=== PATIENT | male | born 1995 | race Caucasian/White ===

== ENCOUNTER 2019-03-07 19:31 | Emergency (ER) | payer SELFPAY ==
[2019-03-07 19:33] VITALS: BP 137/79; PULSE 85; RESP 17; TEMP 37.1; O2SAT 96; BMI 25.0
--- NOTE | 2019-03-07 20:10 | ED.VIS.PSYCH ---
History of Present Illness Chief Complaint: Suicidal Informant: Patient, Significant Other Onset: Weeks - Patient reports suicidal thoughts for greater than 4 weeks, Month(s) - Patient reports being depressed for greater than 12 months Context: Sudden Onset - Today had a surge of feeling suicidal. That has dissipated. Conflict: - - Patient reports minor bickering with . substantiates no problems with marriage. Timing: Continuous Current Severity: Mild Maximum Severity: Moderate Worsened by: - - History of depression presently seeing counselor Relieved by: Nothing Associated Symptoms: Depressed, Change in Eating, Change in sleeping, Suicidal Thoughts. Negative for: Decreased Interest, Guilt, Decreased Concentration, Hopelessness, Easily distracted, Grandiosity, Flight of Ideas, Increased activity, Pressured Speech, Agitated, Angry, Hostile, Threatening, Paranoia, Visual Hallucinations, Auditory Hallucinations Specific plan (suicidal thought): No specific plan Narrative: Patient is 24-year-old male who presents with because of depression for the past 12 months and suicidal thoughts for the past 4 weeks who contacted his software requirements engineer who recommended he come to the emergency department. He has never harmed himself. He has no specific plan to harm himself. There is no psychiatric history in the family. He is present on no medication. Prior similar symptoms: Yes Recent Illness/Hospitalization: No Past Medical History - Allergies and Home Meds Allergies/Adverse Reactions: Allergies No Known Allergies Allergy (Verified 03/07/19 19:32) Primary Care Physician: Samir Olivarez DO [Primary Care Provider] - Prior records reviewed: No Past Medical History: - - History of depression Surgical History: no surgical history Lives: Spouse/ Significant Other Smoking Status: Never smoker Alcohol: None Drugs: None Review of Systems General: Denies: Chills, Fever, Sweats Eyes: Denies: Visual changes - bilaterally, Diplopia ENT: Denies: Bilateral ear pain, Rhinorrhea, Sore throat Cardiovascular: Denies: Chest pain, Palpitations Respiratory: Denies: Dyspnea, Cough, Dyspnea on exertion Gastrointestinal: Denies: Abdominal pain, Nausea, Vomiting, Diarrhea, Melena, Hematochezia Genitourinary: Denies: Dysuria, Hematuria, Frequency Musculoskeletal: Denies: Myalgias, Arthralgias, Neck pain, Back pain, Extremity Pain Skin: Denies: Rash, Wounds Neurological: Denies: Headache, Weakness, Numbness Psych: Reports: Depression, Suicidal thoughts. Denies: Anxiety, Suicidal ideations Hematologic: Denies: Easy bruising, Easy bleeding Physical Exam Vital Signs/Narrative: Vital Signs Temp Pulse Resp BP Pulse Ox 03/07/19 19:33 98.7 F 85 17 137/79 H 96 Inital Vital Signs reviewed: Yes General: Well nourished, Well developed Head: Normocephalic, Atraumatic Eyes: Perrl, EOMI ENT: Moist mucous membranes, No rhinorrhea Neck: Supple, Nontender Cardiovascular: Regular rate, Regular rhythm, No murmurs Respiratory: No distress, CTA bilaterally, Chest nontender Abdomen: Soft, Nontender, Nondistended, Normal bowel sounds Back: Nontender, Normal Inspection Extremities: Nontender, No Edema. Negative for: Healed prior injuries Skin: Normal color, No rash, No Trauma. Negative for: Cyanosis, Diaphoresis, Jaundice Neurological: Alert, Oriented x3, Cranial nerves II-XII grossly intact, Normal Strength, Normal Sensation, Normal DTR - Due to wears, Normal Gait Psych: Normal Speech Pattern, Logical sequential goal directed thoughts, No suicidal or homicidal ideation, Normal Stable Appropriate Affect, Normal Appearance, Depressed, Suicidal thoughts. Negative for: Poverty of Speech, Flight of Ideas, Incoherent thoughts, Homicidal thoughts, Hallucinations, Delusions, Paranoid Ideation, Poor Insight, Limited Insight, Poor Judgement, Limited Judgement Diagnostic/Tx/Re-eval Restraints applied: No Patient with history of depression for greater than 12 months and suicidal thoughts for greater than 1 month with no prior history of self injury and no specific plan who does have symptoms of depression. He is pleasant seeing a counselor. Modified sad person score is less than 5. Plan is to prescribe Zoloft and have him follow-up with counselor and his primary care physician who can prescribe antidepressants. ED Disposition - Plan for ED Patient: Disposition: Home or Assisted Living Diagnosis: Mild depression Instructions: Depression Prescriptions: Sertraline HCl [Zoloft] 25 mg PO QHS #30 tab Prescription Printed Referrals: Samir Olivarez DO [Primary Care Provider] - 1-2 Weeks
--- NOTE | 2019-03-07 20:15 | CM.ED ---
SOCIAL WORK DISCUSSED WITH DR. ALFRED. PATIENT PRESENTS TO ED WITH SUICIDAL IDEATION. PER DR. ALFRED, PATIENT WITH NO PLAN OR INTENT TO HARM SELF. DISPOSITION IS HOME WITH PRESCRIPTION FOR ZOLOFT AND FOLLOW UP WITH COUNSELOR AND PCP. NO SOCIAL SERVICE NEED. STEVE OLIVIA, SHIP'S OFFICER, [employer].
[2019-03-07] MEDS: Sertraline 50 MG Tablet 25 MG PO (20:31)
== END 2019-03-07 20:42 | disposition home or self-care (01) ==
PROVIDERS: Emergency Provider Emergency Medicine; Family Provider Family Medicine; PCP Family Medicine
DX: F32.9 Major depressive disorder, single episode, unspecified (principal)
CPT/HCPCS: 99284